=== PATIENT | female | born 1955 ===

== ENCOUNTER 2021-04-09 09:00 | Outpatient (CLI) | payer OTHER | END 2021-04-09 17:15 | disposition home or self-care (01) | LOC: PPH VACUNA 09:00 | PROVIDERS: ATTEND Emergency Medicine Pediatric Emergency Medicine | DX: Z23 Encounter for immunization (principal) ==

== ENCOUNTER 2021-10-22 09:45 | Outpatient (CLI) | payer OTHER | END 2021-10-22 10:00 | disposition home or self-care (01) | LOC: PPH VACUNA 09:45 | PROVIDERS: ATTEND Emergency Medicine Pediatric Emergency Medicine | DX: Z23 Encounter for immunization (principal) ==